=== PATIENT | female | born 1945 | race Caucasian/White ===

== ENCOUNTER → 2020-09-26 09:16 | Outpatient (BNVA) | payer MEDICARE, SELFPAY | PROVIDERS: PCP Internal Medicine; Referring Provider Internal Medicine; Visit Provider Internal Medicine Endocrinology, Diabetes & Metabolism | DX: Z13.89 Encounter for screening for other disorder (principal) | CPT/HCPCS: Q3014 ==

== ENCOUNTER 2020-10-13 09:08 | Outpatient (REF) | payer MEDICARE, SELFPAY ==
--- NOTE | 2020-10-13 09:41 | US_ITS ---
EXAMINATION: US THYROID CLINICAL INFORMATION: Nontoxic multinodular goiter. COMPARISON: Ultrasound soft tissue head/neck thyroid dated 12/22/2019. CT neck 01/07/2019. TECHNIQUE: Linear transducer schafer-scale and color Doppler examination with attention to the region of the thyroid. FINDINGS: SIZE: Measurements of the thyroid lobes and nodules are given in sagittal, anteroposterior and transverse dimensions respectively. Right Thyroid Lobe: 5.9 x 3.6 x 3.9 cm, volume 43.4 mL. Previously 5.5 x 3.5 x 3.3 cm, volume 33.1 mL. Parenchyma: The gland echotexture is heterogeneous. Thyroid vascularity is normal. Left Thyroid Lobe: 5.8 x 3.4 x 2.5 cm, volume 25.8 mL. Previously 5.6 x 3.0 x 2.2 cm, volume 19.0 mL. Parenchyma: The gland echotexture is heterogeneous. Thyroid vascularity is normal. Isthmus: 0.4 cm in maximum AP dimension. Previously 0.6 cm. RIGHT THYROID LOBE: There are 2 nodules seen. 1. Location: Superior. Size: 0.9 x 0.5 x 0.6 cm. Previous: 0.8 x 0.5 x 0.7 cm. Nodule characteristics: . 2. Location: Middle/inferior. Size: 4.8 x 3.0 x 3.4 cm. Previous: 4.2 x 3.0 x 3.5 cm. Nodule characteristics: . ISTHMUS: No nodules. LEFT THYROID LOBE: There are 3 nodules seen. 1. Location: Inferior. Size: 0.7 x 0.7 x 0.7 cm. Previous: 0.8 x 0.7 x 0.7 cm. Nodule characteristics: Hypoechoic. 2. Location: Lower. Size: 1.4 x 1.0 x 1.1 cm. Previous: 1.4 x 0.8 x 1.1 cm. Nodule characteristics: Heterogeneous solid hypoechoic. 3. Location: Lower. Size: 3.5 x 2.9 x 2.4 cm. Previous: 3.1 x 2.8 x 2.4 cm. Nodule characteristics: Heterogeneous solid hypoechoic hyperechoic.. NODES: No lymphadenopathy is seen in the tissue surrounding the thyroid gland. US/US thyroid IMPRESSION: Dominant nodules in each side the one on the left side has slightly increased, . This would be amenable to ultrasound-guided fine-needle aspiration under ultrasound guidance. Various management parameters for solitary thyroid nodules are in the literature. According to the latest 2016 [place] [employer] guidelines, recommendations for thyroid nodules are as follows: Intermediate suspicion: Hypoechoic solid nodule with smooth margins without microcalcification, extrathyroidal extension, or taller than wide shape. Estimated risk of malignancy 10-20%. Recommendation: FNA at > 1 cm. Recommend repeat ultrasound in 12-24 months for nodules measuring less than 1 cm. .
[2020-10-13 11:04] LABS: Alanine Aminotransferase < 6 U/L (0-31); Alkaline Phosphatase 72 U/L (39-117); Anion Gap 12 (12-20); Aspartate Amino Transferase 16 U/L (5-31); Bilirubin Total 0.5 mg/dL (0.0-1.0); Blood Urea Nitrogen 16 mg/dL (9-16); Carbon Dioxide 33 mmol/L (22-29); Chloride 101 mmol/L (96-108); Cholesterol 123 mg/dL; Estimated Glomerular Filt Rate 58; Glucose Fasting 212 mg/dL (60-99); HDL Cholesterol 41 mg/dL; LDL Cholesterol Calculated 51 mg/dl; Potassium 4.4 mmol/l (3.3-5.1); Sodium 142 mmol/L (135-145); Total Protein 6.5 g/dL (6.5-8.0); Triglycerides 155 mg/dL
[2020-10-13 11:10] LABS: Free T4 (Free Thyroxine) 0.77 ng/dL (0.71-1.85)
[2020-10-13 11:25] LABS: Vitamin B12 423 pg/mL (200-900)
[2020-10-13 11:31] LABS: Estimated Average Glucose 154 mg/dL
[2020-10-13 15:29] LABS: Creatinine Urine 151.82 mg/dL; Microalbum/Creatinine Ratio Ur 3136.6 ug/mg cr
[2020-10-14 07:07] LABS: LDL Cholesterol Direct 56 mg/dL (<100)
== END 2020-10-13 09:09 | disposition home or self-care (01) ==
LOC: HO.US 09:08
PROVIDERS: Absent Provider Internal Medicine Endocrinology, Diabetes & Metabolism; PCP Internal Medicine; Visit Provider Internal Medicine
DX: E04.2 Nontoxic multinodular goiter (principal)
CPT/HCPCS: 76536; 80053; 80061; 82043; 82607; 83036; 83721; 84439; 84443

== ENCOUNTER → 2020-10-26 12:42 | Outpatient (BNVA) | payer MEDICARE, SELFPAY | PROVIDERS: PCP Internal Medicine; Visit Provider Physician Assistant | DX: Z13.89 Encounter for screening for other disorder (principal) | CPT/HCPCS: Q3014 ==

== ENCOUNTER → 2021-01-25 09:21 | Outpatient (BNVA) | payer MEDICARE, SELFPAY | PROVIDERS: PCP Internal Medicine; Visit Provider Internal Medicine Endocrinology, Diabetes & Metabolism | DX: Z13.89 Encounter for screening for other disorder (principal) | CPT/HCPCS: Q3014 ==